=== PATIENT | female | born 1970 | race African-American/Black ===

== ENCOUNTER 2017-03-17 02:07 | Emergency (ER) | payer OTHER ==
[2017-03-17] VITALS (7 sets, daily range): BP systolic 117–199; BP diastolic 65–113; PULSE 75–89; RESP 16; TEMP 98.9; O2SAT 98–100
[~2017-03-17] VITALS: Ht 170.2 cm; Wt 73.1 kg
[~2017-03-17 02:07] MED LIST: LISI-587 PO; LORTA5 PO; PROM25TA5 PO; ZITH250T PO
[2017-03-17] MEDS ORDERED: AMLO5TAB2 PO (02:27)
[2017-03-17] MEDS ORDERED: IBUP-1129 (02:27)
[2017-03-17] MEDS ORDERED: LISI20TA3 PO (02:27)
[2017-03-17] MEDS ORDERED: ONDANSETRON ODT 4 MG TAB PO ONE (02:45)
[2017-03-17] MEDS ORDERED: cloNIDine HCL 0.1 MG TAB PO ONE (02:45)
--- NOTE | 2017-03-17 03:24 | RADRPT ---
EXAM DATE/TIME: 03/17/2017 03:09 [place] COMPARISON: CT BRAIN W/O CONTRAST, June 10, 2014, 15:00. INDICATIONS : Cephalgia. Hypertension. Altered vision. RADIATION DOSE: 60.21 CTDIvol (mGy) MEDICAL HISTORY : Hypertension. SURGICAL HISTORY : None. ENCOUNTER: Initial ACUITY: 1 day PAIN SCALE: 5/10 LOCATION: cranial TECHNIQUE: Multiple contiguous axial images were obtained of the head. Using automated exposure control and adj ustment of the mA and/or kV according to patient size, radiation dose was kept as low as reasonably a chievable to obtain optimal diagnostic quality images. DICOM format image data is available electro nically for review and comparison. FINDINGS: CEREBRUM: The ventricles are normal for age. No evidence of midline shift, mass lesion, hemorrhage or acute in farction. Symmetric hypodensities in the anterior limb of the internal capsule bilaterally is unchan ged from prior examination in 2014. No extra-axial fluid collections are seen. POSTERIOR FOSSA: The cerebellum and brainstem are intact. The 4th ventricle is midline. The cerebellopontine angle i s unremarkable. EXTRACRANIAL: The visualized portion of the orbits is intact. SKULL: The calvaria is intact. No evidence of skull fracture. CONCLUSION: No acute findings in the brain. Sony Patino MD on March 17, 2017 at 3:21 Board Certified Radiologist. This report was verified electronically.
[2017-03-17] MEDS ORDERED: CLON0.1T PO (03:55)
--- NOTE | 2017-03-17 04:01 | PD ---
HPI Chief Complaint: Hypertension Time Seen by Provider: 02:36 Travel History International Travel<30 days: No Contact w/Intl Traveler<30days: No Traveled to known affect area: No History of Present Illness HPI 46-year-old female presents to the emergency department for complaint of hypertension. Patient has known hypertension states that at times her blood pressure becomes elevated and tonight it became more elevated than usual. Patient has had some mild headache but sudden onset not thunderclap not worst ever but persistent. No photophobia no vomiting no chest pain no palpitations no shortness of breath no sweats no upper or lower extremity numbness tingling or weakness or ataxia of gait. Patient did take her blood pressure medication as prescribed. Overall discomfort is rated as 3-4/10 intensity. PFSH Past Medical History Narrative Medical Hypertension; nursing notes reviewed Diminished Hearing: No Hypertension: Yes Immunizations Current: Yes ?: Not Tubal Ligation: Yes Past Surgical History Genitourinary Surgery: Yes (TUBAL LIGATION) Social History Alcohol Use: No Tobacco Use: No Substance Use: No Allergies-Medications (Allergen,Severity, Reaction): Coded Allergies: shrimp (Verified Allergy, Severe, rash, 03/17/17) sulfamethoxazole (Verified Allergy, Severe, HIVES, 03/17/17) trimethoprim (Verified Allergy, Severe, HIVES, 03/17/17) dog dander (Verified Allergy, Unknown, congestion, 03/17/17) house dust (Verified Allergy, Unknown, congestion, 03/17/17) Reported Meds & Prescriptions Reported Meds & Active Scripts Active Clonidine (Clonidine HCl) 0.1 Mg Tab 0.1 Mg PO Q12HR PRN Reported Motrin Ib (Ibuprofen) 200 Mg Tablet Lisinopril-Hctz 20-25 Mg Tab 1 Tab PO DAILY Amlodipine (Amlodipine Besylate) 5 Mg Tab 5 Mg PO DAILY Review of Systems Except as stated in HPI: all other systems reviewed are Neg Physical Exam Narrative GENERAL: Well-developed well-nourished female in no acute distress no respiratory distress; GCS 15 SKIN: Warm and dry. HEAD: Atraumatic. Normocephalic. EYES: Pupils equal and round. No papilledema by funduscopic exam. No scleral icterus. No injection or drainage. ENT: No nasal bleeding or discharge. Mucous membranes pink and moist. NECK: Trachea midline. No JVD. Supple no meningismus no nuchal rigidity. CARDIOVASCULAR: Regular rate and rhythm. RESPIRATORY: No accessory muscle use. Clear to auscultation. Breath sounds equal bilaterally. GASTROINTESTINAL: Abdomen soft, non-tender, nondistended. Hepatic and splenic margins not palpable. MUSCULOSKELETAL: Extremities without clubbing, cyanosis, or edema. No obvious deformities. NEUROLOGICAL: Awake and alert. No obvious cranial nerve deficits. Motor grossly within normal limits. Five out of 5 muscle strength in the arms and legs. No pronator drift. No limb ataxia. Normal speech. PSYCHIATRIC: Appropriate mood and affect; insight and judgment normal. Data Data Last Documented VS Orders Orders Ondansetron Odt (Zofran Odt) (03/17/17 02:45) Clonidine (Catapres) (03/17/17 02:45) Ct Brain W/O Iv Contrast(Rout) (03/17/17 ) Ed Discharge Order (03/17/17 04:01) [facility] Medical Decision Making Medical Screen Exam Complete: Yes Emergency Medical Condition: Yes Medical Record Reviewed: Yes Interpretation(s) Last Impressions Head CT 03/17/17 0000 Signed Impressions: Service Date/Time: Friday, March 17, 2017 03:09 - CONCLUSION: No acute findings in the brain. Sony Patino MD Vital Signs Date Time Temp Pulse Resp B/P (MAP) Pulse Ox O2 Delivery O2 Flow Rate FiO2 03/17/17 03:47 89 16 122/78 (93) 100 03/17/17 03:17 88 16 156/94 (114) 99 Room Air 03/17/17 03:04 78 16 165/95 (118) 100 Room Air 03/17/17 02:44 78 16 171/99 (123) 100 Room Air 03/17/17 02:28 76 99 Room Air 03/17/17 02:28 75 16 184/112 (136) 181/106 (131) 03/17/17 02:11 98.9 76 16 199/113 (141) 98 Differential Diagnosis Uncontrolled hypertension, hypertensive urgency, cephalgia, TIA, CVA, ICH, migraine, tension headache Narrative Course Patient with elevated blood pressure complaining of some mild fuzziness of her vision and intermittent sharp head pain denies history of migraine headache not sudden onset not thunderclap not worst ever. Patient states she has been taking her blood pressure medication without change in dose or missing any medications and does not typically have elevated blood pressure but on rare occasion blood pressure Will be quite elevated salicylate decided to come to the emergency room for evaluation. No focality on exam for neuro deficit no chest pain no shortness of breath no vomiting. Patient administered Zofran for complaint of nausea and 4 mg ODT and clonidine 0.1 mg for blood pressure elevation in view of complaint of intermittent stabbing head pain CT brain noncontrast ordered CT brain noncontrast reveals no acute intracranial process patient remains normal neurologic exam BP at 3:47 AM 122/78 Diagnosis Primary Impression: Cephalgia Additional Impression: HTN (hypertension) Referrals: Primary Care Physician call for appointment Patient Instructions: General Instructions Additional Instructions: Take your chronic medications as chronically prescribed Follow up with her primary care provider Return to the emergency department for any concerns or change in condition Med/Other Pt SpecificInfo: Prescription(s) given Scripts Clonidine (Clonidine) 0.1 Mg Tab 0.1 MG PO Q12HR Y for SBP>180, DBP>95, #6 TAB 0 Refills Prov: Viola Martinez MD 03/17/17 Disposition: 01 DISCHARGE HOME Condition: Stable Viola Martinez MD Mar 17, 2017 04:01
== END 2017-03-17 04:15 | disposition home or self-care (01) ==
LOC: PHED 02:07
DX: R51 Headache (principal); I10 Essential (primary) hypertension; Z88.2 Allergy status to sulfonamides; Z79.899 Other long term (current) drug therapy
CPT/HCPCS: 70450; 99284